=== PATIENT | male | born 1965 | race Caucasian/White ===

== ENCOUNTER 2021-12-07 16:30 | Outpatient (CLI) | payer BC | END 2021-12-07 16:31 | disposition home or self-care (01) | LOC: SLEEPLAB 16:30 | PROVIDERS: ATTEND Family Medicine | DX: G47.33 Obstructive sleep apnea (adult) (pediatric) (principal); R53.83 Other fatigue; R09.89 Other specified symptoms and signs involving the circulatory and respiratory systems; K21.9 Gastro-esophageal reflux disease without esophagitis; R06.83 Snoring; G47.00 Insomnia, unspecified; G47.31 Primary central sleep apnea; E66.9 Obesity, unspecified; Z68.37 Body mass index [BMI] 37.0-37.9, adult | CPT/HCPCS: 95800 ==

== ENCOUNTER 2022-01-18 19:00 | Outpatient (CLI) | payer BC | END 2022-01-18 19:01 | disposition home or self-care (01) | LOC: SLEEPLAB 19:00 | PROVIDERS: ATTEND Family Medicine | DX: G47.33 Obstructive sleep apnea (adult) (pediatric) (principal); R53.83 Other fatigue; R09.89 Other specified symptoms and signs involving the circulatory and respiratory systems; K21.9 Gastro-esophageal reflux disease without esophagitis; E66.9 Obesity, unspecified; G47.31 Primary central sleep apnea; Z68.37 Body mass index [BMI] 37.0-37.9, adult | CPT/HCPCS: 95811 ==

== ENCOUNTER 2024-07-09 07:17 | Outpatient (CLI) | payer BC | END 2024-07-09 07:18 | disposition home or self-care (01) | LOC: BICULT 07:17 | PROVIDERS: ATTEND Family Medicine | DX: R74.01 Elevation of levels of liver transaminase levels (principal); K76.0 Fatty (change of) liver, not elsewhere classified; R16.0 Hepatomegaly, not elsewhere classified | CPT/HCPCS: 76705 ==